=== PATIENT | female | born 1995 | race African-American/Black ===

== ENCOUNTER 2016-12-02 19:01 | Emergency (ER) | payer SELFPAY ==
[~2016-12-02] VITALS: Ht 165.1 cm; Wt 130.0 kg
[~2016-12-02 19:01] MED LIST: DICL50TA2 PO
[2016-12-02 19:07] VITALS: BP 140/85; PULSE 100; RESP 16; TEMP 98.8; O2SAT 99
[2016-12-02 21:59] VITALS: BP 133/94; PULSE 99; RESP 17; O2SAT 100
--- NOTE | 2016-12-02 22:06 | PD ---
HPI Chief Complaint: Airborne Operations Problem/Complaint Time Seen by Provider: 22:00 Travel History International Travel<30 days: No Contact w/Intl Traveler<30days: No Traveled to known affect area: No History of Present Illness HPI 21yo F with no PMH presents to the ED with c/o painful bumps in vaginal for 4 days. Pt also with white vaginal discharge. She has recently become sexually active with one partner. Denies any history of STI, fever, chest pain, sob, n/v , abdominal pain, focal weakness or numbness. PFSH Past Medical History Asthma: Yes Developmental Delay: No Diminished Hearing: No Immunizations Current: Yes Tetanus Vaccination: Unknown Influenza Vaccination: No ?: Unknown LMP: 11/18/16 : 0 Past Surgical History Surgical History: No Previous Surgery Social History Alcohol Use: Yes (OCCASIONALLY) Tobacco Use: No Substance Use: No Allergies-Medications (Allergen,Severity, Reaction): Coded Allergies: montelukast (Unverified Allergy, Severe, RESP, 12/02/16) Reported Meds & Prescriptions Reported Meds & Active Scripts Active Acyclovir 200 Mg Cap 200 Mg PO 5 TIMES A DAY 10 Days Keflex (Cephalexin) 500 Mg Cap 500 Mg PO Q12H 7 Days Review of Systems Except as stated in HPI: all other systems reviewed are Neg Physical Exam Narrative GENERAL: 21yo F not in distress. SKIN: Focused skin assessment warm/dry. HEAD: Atraumatic. Normocephalic. CARDIOVASCULAR: Regular rate and rhythm. No murmur appreciated. RESPIRATORY: No accessory muscle use. Clear to auscultation. Breath sounds equal bilaterally. GASTROINTESTINAL: Abdomen soft, non-tender, nondistended. No rebound tenderness or guarding. PELVIC: +Single ulcer in mid labia minora. There are 2 small folliculitis with pointed yellow spot in center on right labia majora. +White vaginal discharge. No CMT or adnexal tenderness bilaterally. MUSCULOSKELETAL: No obvious deformities. No clubbing. No cyanosis. No edema. NEUROLOGICAL: Awake and alert. No obvious cranial nerve deficits. Motor grossly within normal limits. Normal speech. PSYCHIATRIC: Appropriate mood and affect; insight and judgment normal. Data Data Last Documented VS Vital Signs Date Time Temp Pulse Resp B/P (MAP) Pulse Ox O2 Delivery O2 Flow Rate FiO2 12/03/16 00:52 12/02/16 21:59 99 17 100 Room Air 12/02/16 19:07 98.8 Orders Orders Gc And Chlamydia Pcr (12/02/16 22:03) Wet Prep Profile (12/02/16 22:03) Urinalysis - C+S If Indicated (12/02/16 22:03) Ed Urine Pregnancytest Poc (12/02/16 22:03) Urine Culture (12/02/16 20:05) Labs Laboratory Tests Test 12/02/16 20:05 12/02/16 22:35 Urine Color YELLOW Urine Turbidity HAZY Urine pH 6.5 Urine Specific Friendly 1.028 Urine Protein TRACE mg/dL Urine Glucose (UA) NEG mg/dL Urine Ketones 10 mg/dL Urine Occult Blood MOD Urine Nitrite NEG Urine Bilirubin NEG Urine Urobilinogen 2.0 MG/DL Urine Leukocyte Esterase MOD Urine RBC 56 /hpf Urine WBC 11 /hpf Urine Squamous Epithelial Cells 2 /hpf Urine Amorphous Sediment RARE Urine Mucus FEW /lpf Microscopic Urinalysis Comment CULTURE INDICATED Clue Cells (Wet Prep) NONE SEEN Vaginal Trichomonas (Wet Prep) NONE SEEN Vaginal Yeast (Wet Prep) NONE SEEN Chlamydia trachomatis DNA (PCR) NOT DETECTED Neisseria gonorrhoeae DNA (PCR) NOT DETECTED MDM Medical Decision Making Medical Screen Exam Complete: Yes Emergency Medical Condition: Yes Differential Diagnosis Herpes simplex vs. trauma such as a small tear from intercourse vs. bacterial vaginosis vs. chlamydia vs. gonorrhea vs. folliculitis Narrative Course 21yo F with dysuria, vaginal discharge and bumps in her vagina for 4 days. She is well appearing and the ulcer seen on exam is concerning for herpes simplex but could also be from trauma during intercourse. However, there is only one lesion that is ulcer like and does not have the typical herpes simplex appearance. However, pt is recently sexually active so will cover with acyclovir. Advised pt to follow up with [facility] for further evaluation of this. UA showed moderate leukocyte. WBC 11. Will cover with keflex which will also cover folliculitis. Pt does shave. Instructed pt to stop shaving. Wet prep negative. Urine negative. Diagnosis Primary Impression: UTI (urinary tract infection) Qualified Codes: N39.0 - Urinary tract infection, site not specified; R31.9 - Hematuria, unspecified Referrals: Gloria Campbell MD call for appointment Please follow up for evaluation of your lesion Patient Instructions: General Instructions Departure Forms: Tests/Procedures Additional Instructions: Please follow up with gynecology for evaluation of your lesion in your vagina. Return to the ED if symptoms worsen. Med/Other Pt SpecificInfo: Prescription(s) given Scripts Acyclovir (Acyclovir) 200 Mg Cap 200 MG PO 5 TIMES A DAY for Mgmt Viral Infection for 10 Days, CAP 0 Refills Prov: Silvia Aguilera DO 12/03/16 Cephalexin (Keflex) 500 Mg Cap 500 MG PO Q12H for Infection for 7 Days, CAP 0 Refills Prov: Silvia Aguilera DO 12/03/16 Disposition: 01 DISCHARGE HOME Condition: Stable Silvia Aguilera DO Dec 02, 2016 22:06
[2016-12-02 22:52] LABS: BLOOD, URINE MOD (NEG); COMMENT (UR) CULTURE INDICATED; CULTURE IF INDICATED CULTURE INDICATED; GLUCOSE,URINE NEG (NEG); KETONE, URINE 10 mg/dL (NEG); MUCUS URINE FEW /lpf (OCC); NITRITE,URINE NEG (NEG); PH, URINE 6.5 (5.0-8.5); SQUAMOUS EPITHELIAL CELL URINE 2 /hpf (0-5); URINE COLOR YELLOW (YELLW/STRAW)
[2016-12-03] MEDS ORDERED: CEPH-460 PO (00:38)
[2016-12-03] MEDS ORDERED: ACYC200C66 PO (00:40)
[2016-12-03 00:49] LABS: CHLAMYDIA PCR NOT DETECTED (NOT DETECT); NEISSERIA PCR NOT DETECTED (NOT DETECT)
== END 2016-12-03 01:00 | disposition home or self-care (01) ==
LOC: NEPD 19:01
DX: N39.0 Urinary tract infection, site not specified (principal); B96.89 Other specified bacterial agents as the cause of diseases classified elsewhere; R31.9 Hematuria, unspecified
CPT/HCPCS: 81001; 84703; 87086; 87210; 87491; 87591; 99284